=== PATIENT | male | born 1950 | race African-American/Black ===

== ENCOUNTER 2019-10-16 08:34 | Inpatient (IN) | payer MEDICARE, MEDICAID ==
[2019-10-16] MEDS ORDERED: methylPREDNISolone Sod Succ/PF 125 MG/2 ML VIAL ONE (08:52)
[2019-10-16] MEDS ORDERED: Magnesium 2 GM/50 ML BAG (IN WATER) ONE (08:52)
[2019-10-16] MEDS ORDERED: Albuterol Sulfate 2.5 mg/0.5 ml Neb ONE (08:57)
[2019-10-16] MEDS ORDERED: Albuterol Sulfate 1.25 MG/3 ML NEB ONE (08:57)
[2019-10-16] MEDS ORDERED: Acetaminophen 325 MG TAB PO PRN (09:00)
[2019-10-16] MEDS ORDERED: Ondansetron ODT 4 MG TAB SL PRN (09:00)
[2019-10-16] MEDS ORDERED: Ondansetron PF 4 MG/2 ML Vial IVP PRN (09:00)
--- NOTE | 2019-10-16 09:07 | RAD ---
XR Chest 1 View Portable History: Difficulty breathing Comparison: Radiograph 2010 Findings: Abnormal consolidation in the right middle lobe. Also some faint airspace opacities in the lingula and left lower lobe. Cardiac silhouette and mediastinal contours are within normal limits. Impression: Findings of multifocal bronchopneumonia. Follow-up after treatment recommended.
[2019-10-16 09:10] LABS: #Basophils 0.1 thou/uL (0.0-0.2); #Eosinphils 0.1 thou/uL (0.0-0.7); #Lymphocytes 1.8 thou/uL (1.20-3.40); #Monocytes 0.4 thou/uL (0.11-0.59); %Basophils 1.1 % (0.0-1.0); %Eosinophils 1.9 % (0.0-10.0); %Lymphocytes 33.7 % (21.0-51.0); %Monocytes 6.7 % (0.0-10.0); %Neutrophils 56.6 % (42.0-75.0); Hemoglobin 14.3 g/dL (14.0-18.0); Mean Corpuscular HGB CONC 31.4 g/dL (32.0-36.0); Mean Corpuscular Hemoglobin 28.8 pg (27.0-31.0); Mean Corpuscular Volume 91.5 fL (78.0-98.0); Mean Platelet Volume 7.8 fL (7.4-10.4); Platelet Count 408 thou/uL (130-400); RBC Distribution Width 15.2 % (11.5-14.5); Red Blood Cell (RBC) Count 4.97 mill/uL (4.70-6.10); White Blood Cell (WBC) Count 5.3 thou/uL (4.8-10.8)
[2019-10-16 09:29] LABS: ALT (SGPT) 34 U/L (8-55); AST (SGOT) 38 U/L (5-34); Albumin 4.1 g/dL (3.4-4.8); Alkaline Phosphatase 125 U/L (40-110); Anion Gap 15 mmol/L (10-20); BUN (Urea Nitrogen) 12 mg/dL (8.4-25.7); Bilirubin, Total 0.3 mg/dL (0.2-1.2); Calc. Creatinine Clearance 0 mL/min (70-130); Calcium 9.6 mg/dL (7.8-10.44); Carbon Dioxide 25 mmol/L (23-31); Chloride 105 mmol/L (98-107); Estimated GFR-MDRD 76; Globulin 3.4 g/dL (2.4-3.5); Glucose 183 mg/dL (80-115); Potassium 3.8 mmol/L (3.5-5.1); Protein, Total 7.5 g/dL (5.8-8.1); Sodium 141 mmol/L (136-145)
[2019-10-16 09:54] LABS: CKMB 8.3 ng/mL (0-6.6)
[2019-10-16] MEDS ORDERED: Aspirin Chewable 81 MG TAB ONE ×2 (10:11→10:35)
[2019-10-16] MEDS ORDERED: cefTRIAXone\\ROCEPHIN 1 GM VIAL ONE (10:11)
[2019-10-16] MEDS ORDERED: Sodium Chloride 0.9% 100 ML ONE (10:12)
[2019-10-16] MEDS ORDERED: Azithromycin 500 MG VIAL ONE (10:35)
--- NOTE | 2019-10-16 10:40 | CT ---
CT ANGIOGRAM CHEST: HISTORY: Dyspnea. COMPARISON: None. TECHNIQUE: CT angiogram of the chest is performed in the axial plane. Three-dimensional reformatted images are s ubmitted for interpretation. FINDINGS: Mediastinum: No mass, lymphadenopathy or hematoma. HEART: Normal size. No significant pericardial fluid. Aorta: No aneurysm or dissection. Upper solid abdominal viscera: No abnormality enhancement. Trachea and central bronchi: Patent. Pleural spaces: Small right and trace left pleural effusion. Lung parenchyma: Extensive emphysematous changes, predominantly involving both upper lobes. There are patchy interstitial and ground glass opacities throughout the lung parenchyma, worrisome for edema or infiltrate. There is a 3 mm solid nodule in the right upper lobe, a pleural-based 4 mm nodule in t he middle lobe and a 0.8 cm ground glass nodule in the right lower lobe. Pneumothorax: None. Osseous structures: No lytic or blastic lesions. Pulmonary arteries: Adequate contrast opacification pulmonary arterial system to the level of segment al arteries. No filling defect to suggest pulmonary embolism. IMPRESSION: 1. No evidence of pulmonary artery embolism to the level of the segmental arteries. 2. Emphysema. 3. Interstitial and alveolar opacities likely due to edema or infiltrate. 4. Solid nodules in the right lung as described above. CODE LN Transcribed Date/Time: 10/16/2019 10:50 AM
--- NOTE | 2019-10-16 10:41 | RAD ---
LEFT KNEE FOUR VIEWS: HISTORY: Knee pain. COMPARISON: None. FINDINGS: Mild medial compartment joint space narrowing. Old fibular neck fracture. Trace joint effusion. IMPRESSION: No acute fracture or malalignment. POS: OFF
[2019-10-16] MEDS ORDERED: Iopamidol-370 76% 500 ML 1 ML ONE (11:32)
[2019-10-16] MEDS ORDERED: Nitroglycerin 0.4 MG TAB (25 Tab Bottle) PO PRN (12:11)
[2019-10-16] MEDS ORDERED: hydrALAZINE 20 MG/ML VIAL SLOW IVP PRN (12:17)
[2019-10-16 12:59] LABS: Troponin I 0.202 ng/mL (< 0.028)
[2019-10-16] MEDS: Azithromycin 500 MG in Sodium Chloride 0.9% 250 ML 250 ML IVPB SCH (14:24)
[2019-10-16] MEDS: cefTRIAXone\\ROCEPHIN 1 GM in Sodium Chloride 0.9% 100 ML IVPB SCH (14:25)
[2019-10-16 14:45] VITALS: BMI 25.8
[2019-10-16 16:13] LABS: Troponin I 0.279 ng/mL (< 0.028)
--- NOTE | 2019-10-16 16:27 | CON ---
DATE OF CONSULTATION: HISTORY OF PRESENT ILLNESS: Aleks Mauro is a 69-year-old gentleman, unclear who is the primary care physician. He normally walks [address] everyday because of lack of transportation. While he was walking to it, he developed left chest pain, coughing spell, shortness of breath, could not talk, went into the store next door, called 911. Ambulance came, picked him and took him to the hospital. He lives in a [facility] and has been living there off and on for a period of time. He worked at the [employer] for a period of time. Apparently, he was given Nitropaste en route. He says at most days, he can walk a fair distance without getting markedly short of breath. Prior history of pneumonia, but no history of TB. No history of asthma. He has a cough, which is nonproductive, it has been going for a week. He has not received any medication for this. He has smoked two packs a day in the past, now apparently 7 cigarettes a day. PAST MEDICAL HISTORY: Pertinent mainly for hypertension. PAST SURGICAL HISTORY: None. CHRONIC MEDICATION: Lisinopril. SOCIAL HISTORY: He drinks from time to time, maybe up to 2 to 4 beers a day. He apparently was scheduled to have a colonoscopy done as per his history. FAMILY HISTORY: Remarkable. REVIEW OF SYSTEMS: Otherwise, negative. PHYSICAL EXAMINATION: GENERAL: He is in no acute distress. Poor dental hygiene. VITAL SIGNS: Pulse 99, saturations are 98%, blood pressure 180/88, respirations 18. CHEST: Minimal crackles, minimal wheezing. CARDIAC: Normal S1 and S2. No gallops. ABDOMEN: No masses. LABORATORY DATA: White count 5000, hemoglobin and hematocrit are 14 and 45, platelet count 408. His BNP is 149. His troponin is slightly elevated. His lytes are normal. D-dimer is 1.25. CT angio was done. His chest x-ray shows some increased interstitial markings, mainly in the right middle lobe area. No PE was seen. 3 mm nodule in the right upper lobe, too small to make any assumption. IMPRESSION: 1. Abnormal x-ray, probably atypical pneumonia. 2. Tobacco abuse. 3. Chest pain, elevated troponin. 4. Hypertension. I agree with present treatment and management. Continue antibiotics, supportive care. Consultation note 70 minutes, 50% direct patient care. Job ID: [id number]
--- NOTE | 2019-10-16 18:58 | HP ---
PRESENTING COMPLAINT: Shortness of breath and hypoxia. HISTORY OF PRESENT ILLNESS: The patient with past medical history of hypertension, active smoker, presented with shortness of breath. As per patient, he was walking and all of a sudden he started feeling chest pain and shortness of breath with cough, wheezing. As per patient, he felt short of breath. He could not walk, so he went to the nearby shop and EMS was called. In the emergency room, the patient was found to be hypoxic, oxygen saturation 80%. The patient was given breathing treatment and steroids. The patient currently feeling better and placed on oxygen, currently saturating well 95% on 2 L nasal cannula, no distress. Chest pain resolved. As per patient, he has been having cough with sputum production, ongoing from last 2 weeks, also has runny nose, stuffy nose, sore throat. Complains of nausea. Denies vomiting, diarrhea, constipation. Also been producing less urine as per patient. Denies headache or dizziness. Denies worsening swelling of the feet. SYSTEMIC REVIEW: As mentioned above. PAST MEDICAL HISTORY: As mentioned above. PAST SURGICAL HISTORY: Negative. SOCIAL HISTORY: The patient is active smoker, smokes 1 to 2 pack a day. The patient counseled quitting smoking. Does not want nicotine patch. Drinks alcohol occasionally. Denies any drug abuse. ALLERGIES: NKDA. OBJECTIVE: VITAL SIGNS: Blood pressure 176/86, temperature 98.6, oxygen saturation 95% on 2 L nasal cannula, respiratory rate 18. GENERAL: The patient is lying in bed comfortably, in no distress. HEENT: Conjunctivae normal. Oral mucosa moist. NECK: Supple. No JVD. No lymphadenopathy. CHEST: Vesicular breathing, prolonged expiration. No rhonchi at present. HEART: Sounds normal. ABDOMEN: Soft and benign. No tenderness or visceromegaly. EXTREMITIES: Negative edema of feet. LABORATORY DATA: CBC unremarkable except platelet count 408. INR 1.22. CMP unremarkable except AST 38, blood glucose 183. ProBNP 149. Chest x-ray findings multifocal bronchopneumonia. Chest CTA, 1. No evidence of pulmonary embolism to the level of subsegmental arteries. 2. Emphysema. 3. Interstitial and alveolar opacities likely due to edema or infiltrate. Solid nodules in the right lung. Knee x-ray, no acute fracture or malalignment. IMPRESSION: 1. Acute hypoxia, unclear cause, possible component of acute pulmonary edema versus pneumonia. We will continue oxygen to keep oxygen saturation 90%. The patient is currently saturating 97%. We will continue the patient on broad-spectrum antibiotics. Follow up blood culture and sputum culture. The patient is active smoker, possible component of chronic obstructive airway disease. 2. Chest pain with positive troponin. We will continue serial troponin monitoring. We will get Cardiology evaluation. We will continue p.r.n. pain medications, morphine. EKG without any significant changes. 3. Hypertension. We will continue monitoring blood pressure. We will continue blood pressure medication. 4. Active smoker. The patient counseled quitting smoking. Does not want any nicotine patch. 5. Deep venous thrombosis and gastrointestinal prophylaxis. PLAN: Discussed with the patient, nursing staff. Job ID: [id number]
[2019-10-17] MEDS ORDERED: Midazolam HCl 2 mg/2 ml Vial ONE (06:32)
[2019-10-17] MEDS ORDERED: Fentanyl 100 MCG/2 ML VIAL ONE (06:32)
[2019-10-17] MEDS ORDERED: Lidocaine 1% (PF) 30 ML VIAL ONE (06:33)
[2019-10-17] MEDS: Lisinopril/Hydrochlorothiazide 10 mg/12.5 mg Tablet PO SCH (08:58)
[2019-10-17] MEDS: Enoxaparin Sodium 40 MG/0.4 ML SYRINGE SC SCH (08:58)
[2019-10-17] MEDS: Aspirin 325 mg Enteric Coated Tablet PO SCH (08:58)
--- NOTE | 2019-10-17 09:26 | PRG ---
DATE OF SERVICE: 10/17/2019 SUBJECTIVE: This morning he is awake, alert, responsive, confused. PHYSICAL EXAMINATION: VITAL SIGNS: Temperature 99, pulse 20, 97% on room air, blood pressure 140/62. CHEST: No wheezing, crackles. CARDIAC: Normal S1, S2. No gallops. ABDOMEN: No mass. IMPRESSION: Right-sided pneumonia. Bipolar schizophrenic. Elevated troponin. Normal EF. PLAN: Continue antibiotics. Probably can be switched over to hold in the next 24 to 48 hours since all cultures are negative. Pulmonary will follow while in the MICU. Job ID: [id number]
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
[2019-10-17] MEDS: cefTRIAXone\\ROCEPHIN 1 GM in Sodium Chloride 0.9% 100 ML IVPB SCH (13:07)
[2019-10-17] MEDS: Azithromycin 500 MG in Sodium Chloride 0.9% 250 ML 250 ML IVPB SCH (13:07)
[2019-10-18 04:43] LABS: Cardiac Risk 3.1 (Less than 4.5)
[2019-10-18] MEDS: Aspirin 325 mg Enteric Coated Tablet PO SCH (08:59)
[2019-10-18] MEDS: Lisinopril/Hydrochlorothiazide 10 mg/12.5 mg Tablet PO SCH (08:59)
[2019-10-18] MEDS: Enoxaparin Sodium 40 MG/0.4 ML SYRINGE SC SCH (09:00)
--- NOTE | 2019-10-18 09:35 | PRG ---
DATE OF SERVICE: 10/18/2019 SUBJECTIVE: Aleks Mauro is a 69-year-old gentleman. Remains in the MICU. OBJECTIVE: VITAL SIGNS: Pulse 90, blood pressure 174/94, saturation 90% on room air, respiratory rate 18. GENERAL: He is in no distress. CHEST: Decreased breath sounds. No wheezing. CARDIAC: Normal S1, S2. No gallops. ABDOMEN: No masses. ASSESSMENT: 1. Tobacco abuse. 2. Pneumonia. 3. Abnormal troponin. PLAN: P.o. antibiotics. Disposition as per Cardiology. Job ID: [id number]
--- NOTE | 2019-10-18 09:47 | PDOC.HOSPP ---
- Subjective Encounter Date: 10/18/19 Encounter Time: 09:46 Subjective: Mr. Mauro was seen today in follow-up. He was very difficult to follow. He says he needs to "get out in the world". He continues to have some cough. - Objective Vital Signs & Weight: Vital Signs (12 hours) Temp Pulse Resp BP Pulse Ox 10/18/19 08:59 90 174/91 H 10/18/19 07:53 90 16 96 10/18/19 07:19 96 10/18/19 07:15 98.0 F 10/18/19 03:36 98.4 F 10/18/19 00:09 75 18 92 L 10/17/19 23:19 98.8 F Weight Weight 179 lb Most Recent Monitor Data Heart Rate from ECG 73 NIBP 174/91 NIBP BP-Mean 118 Respiration from ECG 15 SpO2 99 I&O: 10/17/19 10/18/19 10/19/19 06:59 06:59 06:59 Intake Total 1160 1630 Output Total 900 2550 Balance 260 -920 Result Diagrams: 10/16/19 08:57 10/16/19 08:57 Hospitalist ROS - Medication Medications: Active Medications Generic Name Dose Route Start Last Admin Trade Name Freq PRN Reason Stop Dose Admin Albuterol/Ipratropium 3 ml 10/16/19 13:00 10/18/19 07:53 Duoneb NEB 3 ml [id number] JORGE Administration Aspirin 325 mg 10/17/19 09:00 10/18/19 08:59 Ecotrin PO 325 mg DAILY JORGE Administration Enoxaparin Sodium 40 mg 10/17/19 09:00 10/18/19 09:00 Lovenox SC 40 mg 0900 JORGE Administration Lisinopril/HCTZ 1 tab 10/17/19 09:00 10/18/19 08:59 Prinizide 10-12.5 PO 1 tab DAILY JORGE Administration Metoprolol Succinate 25 mg 10/18/19 09:00 10/18/19 08:59 Toprol Xl PO 25 mg DAILY JORGE Administration - Exam Eye: PERRL, anicteric sclera Heart: RRR, no murmur, no gallops, no rubs, normal peripheral pulses Respiratory: rales (+ rales at the bases, and occasional rhonchi) Gastrointestinal: soft, non-tender, non-distended, normal bowel sounds, no palpable masses, no hepatomegaly Extremities: no cyanosis, no clubbing, no edema Hosp A/P (1) Acute and chronic respiratory failure with hypoxia Code(s): J96.21 - ACUTE AND CHRONIC RESPIRATORY FAILURE WITH HYPOXIA Status: Acute (2) COPD exacerbation Code(s): J44.1 - CHRONIC OBSTRUCTIVE PULMONARY DISEASE W (ACUTE) EXACERBATION Status: Acute (3) NSTEMI (non-ST elevated myocardial infarction) Code(s): I21.4 - NON-ST ELEVATION (NSTEMI) MYOCARDIAL INFARCTION Status: Acute (4) Hypertension Code(s): I10 - ESSENTIAL (PRIMARY) HYPERTENSION Status: Chronic (5) Schizophrenia Code(s): F20.9 - SCHIZOPHRENIA, UNSPECIFIED Status: Acute - Plan * COPD exacerbation- improving * NSTEMI- he has refused additional work-up * Schizophrenia - he has flight of ideas, and mentioned that "people are not helping people on the streets and someone need to kill them" He also mentioned that at times he may want to kill people too. I was not able to elicit an exact plan * Will consult [facility] prior to discharge * HTN- blood pressure is elevated- will increase the dose of Metoprolol * He is stable for transfer out of the [facility], and stable for discharge out of the hospital once he is cleared by [facility]
--- NOTE | 2019-10-18 12:58 | RAD ---
EXAM: Chest 2 views: HISTORY: Pneumonia COMPARISON: 10/17/2009 FINDINGS: There is a normal-sized cardiomediastinal silhouette. There is no evidence of consolidation, mass, or pleural effusion. The bones are unremarkable. IMPRESSION: No evidence of acute cardiopulmonary disease
[2019-10-18] MEDS ORDERED: Doxycycline 100 MG CAP PO SCH (21:00)
[2019-10-18] MEDS ORDERED: Atorvastatin Calcium 20 MG TAB PO SCH (21:00)
[2019-10-19 07:51] VITALS: BP 156/74; TEMP 98.3
[2019-10-19] MEDS: Lisinopril/Hydrochlorothiazide 10 mg/12.5 mg Tablet PO SCH (09:17)
[2019-10-19] MEDS: Aspirin 325 mg Enteric Coated Tablet PO SCH (09:17)
[2019-10-19] MEDS: Enoxaparin Sodium 40 MG/0.4 ML SYRINGE SC SCH (09:18)
--- NOTE | 2019-10-19 09:18 | PRG ---
DATE OF SERVICE: 10/19/2019 SUBJECTIVE: This morning, he is better. OBJECTIVE: VITAL SIGNS: Temperature 98, pulse 75, respiratory rate 18, saturation is 97% on room air, and blood pressure 156/74. CHEST: No wheezing or crackles. CARDIAC: Normal S1, S2. No gallops. ABDOMEN: No masses. DIAGNOSTIC DATA: X-ray yesterday shows complete resolution of the right-sided infiltrate. IMPRESSION: 1. Homeless individual. 2. Tobacco abuse. 3. Chronic obstructive pulmonary disease. 4. Schizophrenia. PLAN: Pulmonary jennings, much improved. Disposition as per primary care physician. Antibiotics for several days. Please call if needed. Job ID: [id number]
== END 2019-10-19 11:34 | disposition home or self-care (01) | DRG 280 ==
LOC: ERS 08:34 → IMCU/EMU 11:57 → T4-A 10-18 20:36
PROVIDERS: ADMIT Internal Medicine; ATTEND Emergency Medicine
DX: I21.4 Non-ST elevation (NSTEMI) myocardial infarction (principal); J96.21 Acute and chronic respiratory failure with hypoxia; J18.9 Pneumonia, unspecified organism; J44.1 Chronic obstructive pulmonary disease with (acute) exacerbation; F20.9 Schizophrenia, unspecified; F17.210 Nicotine dependence, cigarettes, uncomplicated; Z79.899 Other long term (current) drug therapy; Z59.0 Homelessness
CPT/HCPCS: 36415; 71045; 71046; 71275; 80053; 80061; 82553; 83880; 84484; 85025; 85379; 87804; 93005; 93306; 94640; 94644; J0456; J0696; J1650; J2001; J2250; J2930; J3010; J3475; J3490; J7050; J7611; J7620; Q9967

== ENCOUNTER 2022-02-19 11:41 | Outpatient (CLI) | payer MEDICARE | END 2022-02-19 11:42 | disposition home or self-care (01) | LOC: BICRAD 11:41 | PROVIDERS: ATTEND Family Medicine | DX: M54.2 Cervicalgia (principal); M47.812 Spondylosis without myelopathy or radiculopathy, cervical region | CPT/HCPCS: 72040 ==

== ENCOUNTER 2022-04-11 09:55 | Emergency (ER) | payer MEDICARE, MEDICAID ==
[2022-04-11 11:19] LABS: Hemoglobin 7.6 g/dL (14.0-18.0); Mean Corpuscular Hemoglobin 22.4 pg (27.0-31.0); Mean Corpuscular Volume 72.3 fL (78.0-98.0); Mean Platelet Volume 7.3 fL (7.4-10.4); Platelet Count 818 thou/uL (130-400); RBC Distribution Width 21.5 % (11.5-14.5); Red Blood Cell (RBC) Count 3.38 mill/uL (4.70-6.10); White Blood Cell (WBC) Count 6.6 thou/uL (4.8-10.8)
[2022-04-11 11:20] LABS: #Lymphocytes 0.8 thou/uL (1.20-3.40); #Monocytes 0.3 thou/uL (0.11-0.59); #Neutrophils 5.4 thou/uL (1.40-6.50); %Basophils 0.1 % (0.0-1.0); %Eosinophils 0.1 % (0.0-10.0); %Lymphocytes 12.1 % (21.0-51.0); %Monocytes 5.2 % (0.0-10.0); %Neutrophils 82.5 % (42.0-75.0)
[2022-04-11 11:25] LABS: ALT (SGPT) 12 U/L (8-55); AST (SGOT) 16 U/L (5-34); Albumin 3.3 g/dL (3.4-4.8); Alkaline Phosphatase 87 U/L (40-110); Anion Gap 15 mmol/L (10-20); BUN (Urea Nitrogen) 8 mg/dL (8.4-25.7); Bilirubin, Total 0.2 mg/dL (0.2-1.2); Calc. Creatinine Clearance 0 mL/min (70-130); Calcium 9.9 mg/dL (7.8-10.44); Carbon Dioxide 33 mmol/L (23-31); Chloride 93 mmol/L (98-107); Estimated GFR 92; Globulin 4.2 g/dL (2.4-3.5); Glucose 103 mg/dL (83-110); Potassium 3.4 mmol/L (3.5-5.1); Protein, Total 7.5 g/dL (5.8-8.1); Sodium 138 mmol/L (136-145)
[2022-04-11 11:46] LABS: Hypochromia MODERATE=16-30 cells (100X) (0-5/hpf); MDiff Complete? YES; Platelet Morphology Comment Appears Increased; Polychromasia SLIGHT = 2-3 cells (100X) (0-2/hpf); Schistocytes SLIGHT = 2-5 cells (100X) (0-1/hpf); Target Cells SLIGHT = 2-5 cells (100X) (0-1/hpf)
[2022-04-11 20:30] LABS: SARS-CoV-2 NAA Rapid Test DETECTED (NotDetected)
== END 2022-04-12 08:59 | disposition short-term general hospital (02) ==
LOC: ERS 09:55
DX: U07.1 COVID-19 (principal); C10.9 Malignant neoplasm of oropharynx, unspecified; I10 Essential (primary) hypertension; F17.210 Nicotine dependence, cigarettes, uncomplicated; Z79.899 Other long term (current) drug therapy
CPT/HCPCS: 70491; 80053; 85025; 93005; 99285; U0002

== ENCOUNTER 2022-04-21 09:21 | Inpatient (IN) | payer MEDICARE, MEDICAID ==
[2022-04-21 10:13] LABS: #Lymphocytes 0.7 thou/uL (1.20-3.40); #Monocytes 0.4 thou/uL (0.11-0.59); %Basophils 0.3 % (0.0-1.0); %Lymphocytes 6.7 % (21.0-51.0); %Monocytes 3.8 % (0.0-10.0); %Neutrophils 89.2 % (42.0-75.0); Hemoglobin 7.9 g/dL (14.0-18.0); Mean Corpuscular HGB CONC 30.4 g/dL (32.0-36.0); Mean Corpuscular Hemoglobin 22.6 pg (27.0-31.0); Mean Corpuscular Volume 74.6 fL (78.0-98.0); Mean Platelet Volume 7.9 fL (7.4-10.4); Platelet Count 1036 thou/uL (130-400); RBC Distribution Width 24.7 % (11.5-14.5); Red Blood Cell (RBC) Count 3.47 mill/uL (4.70-6.10); White Blood Cell (WBC) Count 10.1 thou/uL (4.8-10.8)
[2022-04-21 10:28] LABS: Hypochromia SLIGHT = 6-15 cells (100X) (0-5/hpf); Microcytosis SLIGHT = 6-15 cells (100X) (0-5/hpf); Polychromasia SLIGHT = 2-3 cells (100X) (0-2/hpf)
[2022-04-21 10:29] LABS: Platelet Morphology Comment Appears Increased; Target Cells SLIGHT = 2-5 cells (100X) (0-1/hpf)
[2022-04-21 10:32] LABS: ALT (SGPT) 9 U/L (8-55); AST (SGOT) 12 U/L (5-34); Albumin 3.3 g/dL (3.4-4.8); Alkaline Phosphatase 83 U/L (40-110); Anion Gap 16 mmol/L (10-20); BUN (Urea Nitrogen) 10 mg/dL (8.4-25.7); Bilirubin, Total 0.5 mg/dL (0.2-1.2); Calc. Creatinine Clearance 0 mL/min (70-130); Carbon Dioxide 33 mmol/L (23-31); Chloride 97 mmol/L (98-107); Estimated GFR 76; Globulin 4.3 g/dL (2.4-3.5); Glucose 118 mg/dL (83-110); Potassium 3.6 mmol/L (3.5-5.1); Protein, Total 7.6 g/dL (5.8-8.1); Sodium 142 mmol/L (136-145)
[2022-04-21 10:51] LABS: CKMB 1.6 ng/mL (0-6.6)
[2022-04-21] MEDS ORDERED: Cefepime 2 GM VIAL ONE (11:51)
[2022-04-21] MEDS ORDERED: Aspirin Chewable 81 MG TAB ONE (11:51)
[2022-04-21 14:32] LABS: CKMB 1.5 ng/mL (0-6.6)
[2022-04-21 15:10] LABS: SARS-CoV-2 NAA Rapid Test DETECTED (NotDetected)
== END 2022-04-21 15:17 | disposition home or self-care (01) | DRG 195 ==
LOC: ERS 09:21 → ERHOLD 11:50
PROVIDERS: ADMIT Family Medicine; ATTEND Family Medicine
DX: J18.9 Pneumonia, unspecified organism (principal); R77.8 Other specified abnormalities of plasma proteins; I10 Essential (primary) hypertension; F17.210 Nicotine dependence, cigarettes, uncomplicated; Z28.310 Unvaccinated for COVID-19
CPT/HCPCS: 36415; 71045; 80053; 82553; 83605; 83880; 84484; 85025; 87040; 93005; 96365; 96366; 96367; J0692; J1956; U0002

== ENCOUNTER 2022-05-22 11:05 | Inpatient (IN) | payer MEDICARE, MEDICAID ==
[2022-05-22 12:54] LABS: #Lymphocytes 0.7 thou/uL (1.20-3.40); #Monocytes 0.4 thou/uL (0.11-0.59); #Neutrophils 5.7 thou/uL (1.40-6.50); %Basophils 0.4 % (0.0-1.0); %Eosinophils 0.2 % (0.0-10.0); %Lymphocytes 10.4 % (21.0-51.0); %Monocytes 5.6 % (0.0-10.0); %Neutrophils 83.4 % (42.0-75.0); Hemoglobin 7.8 g/dL (14.0-18.0); Mean Corpuscular HGB CONC 29.8 g/dL (32.0-36.0); Mean Corpuscular Hemoglobin 19.7 pg (27.0-31.0); Mean Corpuscular Volume 66.1 fL (78.0-98.0); Mean Platelet Volume 10.7 fL (7.4-10.4); Platelet Count 821 thou/uL (130-400); RBC Distribution Width 24.7 % (11.5-14.5); Red Blood Cell (RBC) Count 3.97 mill/uL (4.70-6.10); White Blood Cell (WBC) Count 6.9 thou/uL (4.8-10.8)
[2022-05-22 13:06] LABS: ALT (SGPT) Less than 7 U/L (8-55); AST (SGOT) 10 U/L (5-34); Albumin 3.1 g/dL (3.4-4.8); Alkaline Phosphatase 88 U/L (40-110); Anion Gap 15 mmol/L (10-20); BUN (Urea Nitrogen) 9 mg/dL (8.4-25.7); Bilirubin, Total 0.3 mg/dL (0.2-1.2); Calc. Creatinine Clearance 0 mL/min (70-130); Calcium 10.7 mg/dL (7.8-10.44); Carbon Dioxide 34 mmol/L (23-31); Chloride 92 mmol/L (98-107); Estimated GFR 92; Glucose 98 mg/dL (83-110); Potassium 3.5 mmol/L (3.5-5.1); Protein, Total 7.1 g/dL (5.8-8.1); Sodium 137 mmol/L (136-145)
[2022-05-22 13:17] LABS: Anisocytosis MODERATE=16-30 cells (100X) (0-5/hpf); Hypochromia MODERATE=16-30 cells (100X) (0-5/hpf); MDiff Complete? YES; Microcytosis SLIGHT = 6-15 cells (100X) (0-5/hpf); Ovalocytes SLIGHT = 2-5 cells (100X) (0-1/hpf); Platelet Morphology Comment Appears Increased; Poikilocytosis SLIGHT = 6-15 cells (100X) (0-5/hpf); Polychromasia SLIGHT = 2-3 cells (100X) (0-2/hpf); Schistocytes SLIGHT = 2-5 cells (100X) (0-1/hpf); Target Cells MODERATE= 6-15 cells (100X) (0-1/hpf)
[2022-05-22 13:25] LABS: CKMB 0.9 ng/mL (0-6.6)
[2022-05-22] MEDS ORDERED: Ondansetron PF 4 MG/2 ML Vial IVP PRN (15:02)
[2022-05-22] MEDS ORDERED: Bisacodyl 5 MG TAB PO PRN (15:02)
[2022-05-22] MEDS ORDERED: Ondansetron ODT 4 MG TAB PO PRN (15:02)
[2022-05-22] MEDS ORDERED: Senokot S 8.6-50 MG TAB PO PRN (15:02)
[2022-05-22] MEDS ORDERED: Acetaminophen 650 MG Suppository PR PRN (15:02)
[2022-05-22 15:26] LABS: Troponin I 0.076 ng/mL (< 0.028)
[2022-05-22] MEDS ORDERED: hydrALAZINE 20 MG/ML VIAL SLOW IVP PRN (16:16)
[2022-05-22] MEDS: Lactated Ringer's 1,000 ML IV SCH (17:18)
[2022-05-22] MEDS: Nicotine 21 MG PATCH TD SCH (17:19)
[2022-05-22 17:34] VITALS: BMI 15.2
[2022-05-22 17:39] LABS: Acetaminophen Less than 10.0 mcg/mL (10.0-30.0); Alcohol Less than 10 mg/dL (Less than 10); Salicylate Less than 8.0 mg/dL (15.0-30.0)
[2022-05-22 18:12] LABS: SARS-CoV-2 NAA Rapid Test Not Detected (NotDetected)
[2022-05-22 19:55] LABS: Syphilis Antibody Index 2.58 S/CO (<1.00 Non-Reactive)
[2022-05-22 19:57] LABS: Syphilis Antibody INDETERMINATE (Nonreactive)
[2022-05-22] MEDS: Atorvastatin Calcium 40 MG TAB PO SCH (20:53)
[2022-05-22 21:22] LABS: Bacteria/HPF None Seen HPF (None Seen); Bilirubin Negative (Negative); Blood, Urine Negative (Negative); Clarity Clear (Clear); Glucose, Urine (Dipstick) Normal (Negative); Ketone, Urine Negative (Negative); Leukocyte Negative Leu/uL (Negative); Nitrite Negative (Negative); Protein, Urine (Dipstick) Negative (Neg-Trace); RBC/HPF 0-3 HPF (0-3); Specific Gravity, Urine 1.029 (1.002-1.036); Squamous Epithelial None Seen HPF (0-3); Urobilinogen Normal mg/dL (Less than 2)
[2022-05-22 21:27] LABS: Amphetamine Not Detected (NotDetected); Barbiturates Screen Not Detected (NotDetected); Benzodiazepine Screen Not Detected (NotDetected); Cocaine Metabolite Screen Not Detected (NotDetected); Methadone Not Detected (NotDetected); Methamphetamine Not Detected (NotDetected); Opiate Screen Not Detected (NotDetected); Oxycodone Screen Not Detected (NotDetected); Phencyclidine (PCP) Not Detected (NotDetected); THC/Cannabinoid Screen Not Detected (NotDetected); Tricyclic Screen Not Detected (NotDetected)
[2022-05-22 21:39] LABS: Urine Culture Reflex Yes Yes
[2022-05-23] MEDS: Lactated Ringer's 1,000 ML IV SCH ×3 (01:00→22:27)
[2022-05-23 03:58] LABS: #Monocytes 0.5 thou/uL (0.11-0.59); #Neutrophils 3.7 thou/uL (1.40-6.50); %Basophils 0.8 % (0.0-1.0); %Eosinophils 0.3 % (0.0-10.0); %Lymphocytes 19.7 % (21.0-51.0); %Monocytes 9.7 % (0.0-10.0); %Neutrophils 69.4 % (42.0-75.0); Hemoglobin 6.8 g/dL (14.0-18.0); Mean Corpuscular HGB CONC 30.9 g/dL (32.0-36.0); Mean Corpuscular Hemoglobin 20.3 pg (27.0-31.0); Mean Corpuscular Volume 65.7 fL (78.0-98.0); Mean Platelet Volume 10.3 fL (7.4-10.4); Platelet Count 793 thou/uL (130-400); Red Blood Cell (RBC) Count 3.36 mill/uL (4.70-6.10); White Blood Cell (WBC) Count 5.3 thou/uL (4.8-10.8)
[2022-05-23 04:19] LABS: Anion Gap 15 mmol/L (10-20); BUN (Urea Nitrogen) 10 mg/dL (8.4-25.7); Calc. Creatinine Clearance 58 mL/min (70-130); Calcium 10.4 mg/dL (7.8-10.44); Carbon Dioxide 33 mmol/L (23-31); Chloride 93 mmol/L (98-107); Estimated GFR 92; Glucose 93 mg/dL (83-110); Potassium 3.5 mmol/L (3.5-5.1); Sodium 137 mmol/L (136-145)
[2022-05-23] MEDS ORDERED: Enoxaparin Sodium 40 MG/0.4 ML SYRINGE SC SCH (09:00)
[2022-05-23] MEDS: Ferrous Sulfate 325 MG TAB PO SCH (09:15)
[2022-05-23] MEDS: Lisinopril/Hydrochlorothiazide 10 mg/12.5 mg Tablet PO SCH (09:15)
[2022-05-23] MEDS: Nicotine 21 MG PATCH TD SCH (17:20)
[2022-05-23] MEDS: Atorvastatin Calcium 40 MG TAB PO SCH (21:16)
[2022-05-24 05:23] LABS: Hemoglobin 8.1 g/dL (14.0-18.0)
[2022-05-24 05:28] LABS: Hemoglobin 8.2 g/dL (14.0-18.0); Mean Corpuscular HGB CONC 31.7 g/dL (32.0-36.0); Mean Corpuscular Volume 69.4 fL (78.0-98.0); Mean Platelet Volume 10.3 fL (7.4-10.4); Platelet Count 770 thou/uL (130-400); RBC Distribution Width 25.7 % (11.5-14.5); Red Blood Cell (RBC) Count 3.71 mill/uL (4.70-6.10); White Blood Cell (WBC) Count 7.2 thou/uL (4.8-10.8)
[2022-05-24] MEDS: Lisinopril/Hydrochlorothiazide 10 mg/12.5 mg Tablet PO SCH (09:28)
[2022-05-24] MEDS: Enoxaparin Sodium 30 MG/0.3 ML SYRINGE SC SCH (09:29)
[2022-05-24] MEDS: Ferrous Sulfate 325 MG TAB PO SCH (09:29)
[2022-05-24] MEDS: Lactated Ringer's 1,000 ML IV SCH (09:42)
[2022-05-24] MEDS: Nicotine 21 MG PATCH TD SCH (15:30)
[2022-05-24] MEDS: Acetaminophen 325 MG TAB PO PRN (21:33)
[2022-05-24] MEDS: Atorvastatin Calcium 40 MG TAB PO SCH (21:34)
[2022-05-25] MEDS: Enoxaparin Sodium 30 MG/0.3 ML SYRINGE SC SCH (11:14)
[2022-05-25] MEDS: Acetaminophen 325 MG TAB PO PRN (11:15)
[2022-05-25] MEDS: Ferrous Sulfate 325 MG TAB PO SCH (11:15)
[2022-05-25] MEDS: Lisinopril/Hydrochlorothiazide 10 mg/12.5 mg Tablet PO SCH (11:17)
[2022-05-25] MEDS: Nicotine 21 MG PATCH TD SCH (17:24)
[2022-05-25] MEDS: Atorvastatin Calcium 40 MG TAB PO SCH (20:40)
[2022-05-26 05:12] LABS: Hemoglobin 8.6 g/dL (14.0-18.0); Mean Corpuscular Hemoglobin 21.6 pg (27.0-31.0); Mean Corpuscular Volume 69.7 fL (78.0-98.0); Platelet Count 703 thou/uL (130-400); RBC Distribution Width 26.4 % (11.5-14.5); Red Blood Cell (RBC) Count 3.97 mill/uL (4.70-6.10); White Blood Cell (WBC) Count 7.6 thou/uL (4.8-10.8)
[2022-05-26 08:32] VITALS: BP 157/76; TEMP 97.2
[2022-05-26] MEDS: Ferrous Sulfate 325 MG TAB PO SCH (09:30)
[2022-05-26] MEDS: Lisinopril/Hydrochlorothiazide 10 mg/12.5 mg Tablet PO SCH (09:30)
[2022-05-26] MEDS: Enoxaparin Sodium 30 MG/0.3 ML SYRINGE SC SCH (09:30)
== END 2022-05-26 17:40 | disposition home or self-care (01) | DRG 146 ==
LOC: ERS 11:05 → 2NO 15:41 → MSONC 05-23 11:57
PROVIDERS: ADMIT Family Medicine; ATTEND Family Medicine
DX: C14.0 Malignant neoplasm of pharynx, unspecified (principal); E43 Unspecified severe protein-calorie malnutrition; Z68.1 Body mass index [BMI] 19.9 or less, adult; I10 Essential (primary) hypertension; Z20.822 Contact with and (suspected) exposure to COVID-19; E78.5 Hyperlipidemia, unspecified; F17.210 Nicotine dependence, cigarettes, uncomplicated; J44.9 Chronic obstructive pulmonary disease, unspecified; F20.9 Schizophrenia, unspecified; Z79.899 Other long term (current) drug therapy
CPT/HCPCS: 36415; 36430; 70491; 80048; 80053; 80306; 80307; 81001; 82553; 84484; 85025; 85027; 86593; 86780; 86850; 86900; 86901; 87086; 93005; 94640; J0360; J1650; J7120; J7620; P9016; U0002